=== PATIENT | female | born 1950 | race Caucasian/White ===

== ENCOUNTER 2018-03-30 05:38 | Observation (INO) ==
[2018-03-24 13:48] LABS: Basophils % 0.5 % (0.0-0.8); Eosinophils # 0.3 10*3/uL (0.0-0.87); Eosinophils % 3.2 % (0.00-10.9); Hematocrit 36.6 VOL% (35.7-47.0); Hemoglobin 12.2 GM/DL (12.0-16.0); Immature Granulocytes % 0.5 %; Immature Granulocytes Absolute 0.04 #; Lymphocytes # 2.8 10*3/uL (1.4-4.0); Lymphocytes % 33.4 % (21.3-54.2); Mean Corpuscular HGB Conc 33.3 GM/DL (32-36); Mean Corpuscular Hemoglobin 29 PG (27-34); Mean Platelet Volume 11.4 FL (9.6-12.0); Monocytes # 0.6 10*3/uL (0.11-0.8); Neutrophils # 4.6 10*3/uL (1.4-7.4); Neutrophils % 55.4 % (38.7-73.9); Platelet Count 276 T/CUMM (130-400); Red Blood Count 4.16 MC/CUMM (3.8-5.5); Red Cell Distribution Width 13.5 % (9.3-17.3); White Blood Count 8.4 T/CUMM (4-12)
[2018-03-24 13:49] LABS: Apearance,Urine CLEAR (Clear); Bilirubin,Urine Negative (Negative); Blood, Urine Negative (Negative); Glucose,Urine (UA) 150 mg/dL (Negative); Ketones,Urine Negative (Negative); Mucus,Urine Occasional /LPF (Occasional); Nitrite,Urine Negative (Negative); Protein,Urine Negative; RBC,Urine <1 /HPF (0-4); Squamous Epithelial Cell,Urine Occasional /HPF (0-10); Urine Color Straw (Yellow); Urine Specific Gravity 1.008 (1.001-1.035); Urine Urobilinogen < 2.0 EU/DL (0.2-1.0); WBC,Urine 1 /HPF (0-6)
[2018-03-24 14:13] LABS: Potassium 3.5 MMOL/L (3.5-5.1)
[2018-03-30] MEDS ORDERED: ALBUTEROL/IPRATROPIUM 3 ML NEB RESP TX ONE (07:47)
[2018-03-30] MEDS ORDERED: DIAZEPAM 5 MG TABLET PO ONE (07:47)
[2018-03-30] MEDS ORDERED: FAMOTIDINE 20 MG TABLET PO ONE (07:47)
[2018-03-30] MEDS ORDERED: ceFAZolin 2,000 MG in PREMIX 1 EACH IV ONE (09:00)
[2018-03-30] MEDS ORDERED: DIAZEPAM 5 MG TABLET ONE (09:30)
[2018-03-30] MEDS ORDERED: FAMOTIDINE 20 MG TABLET ONE (09:30)
[2018-03-30] MEDS: LACTATED RINGERS 1,000 ML IV SCH ×2 (10:13→13:26)
[2018-03-30] MEDS ORDERED: ROPIVACAINE 0.5% 30 ML VIAL ONE (10:27)
[2018-03-30] MEDS ORDERED: LIDOCAINE 1%/EPI INJ 20 ML VIAL ONE (10:38)
[2018-03-30] MEDS ORDERED: RACEPINEPHRINE 0.5 ML NEB RESP TX STA (13:30)
[2018-03-30] MEDS ORDERED: RACEPINEPHRINE 0.5 ML NEB RESP TX ONE (13:31)
[2018-03-30] MEDS ORDERED: ALBUTEROL 1.25 MG/3 ML NEB RESP TX STA ×2 (14:04)
[2018-03-30] MEDS ORDERED: MIDAZOLAM 2 MG/2 ML VIAL ONE (14:07)
[2018-03-30] MEDS ORDERED: fentaNYL 100 MCG/2 ML VIAL ONE (14:07)
[2018-03-30] MEDS ORDERED: DEXAMETHASONE 10 MG/1 ML VIAL ONE ×2 (14:07→14:08)
[2018-03-30] MEDS ORDERED: PROPOFOL 200 MG/20 ML VIAL IV ONE (14:07)
[2018-03-30] MEDS ORDERED: SEVOFLURANE 1 UNIT/15 MINUTE INH ONE (14:07)
[2018-03-30] MEDS ORDERED: NEOSTIGMINE 10 MG/10 ML VIAL ONE (14:08)
[2018-03-30] MEDS ORDERED: ONDANSETRON 4 MG/2 ML VIAL ONE (14:08)
[2018-03-30] MEDS ORDERED: ROCURONIUM 100 MG/10 ML VIAL IV ONE (14:08)
[2018-03-30] MEDS ORDERED: GLYCOPYRROLATE 0.4 MG/2 ML VIAL ONE (14:08)
[2018-03-30] MEDS ORDERED: FUROSEMIDE 40 MG/4 ML VIAL IV ONE ×2 (14:27→18:00)
[2018-03-30] MEDS ORDERED: FUROSEMIDE 40 MG/4 ML VIAL ONE (14:30)
[2018-03-30] MEDS ORDERED: HYDROmorphone 2 MG/1 ML VIAL IV PRN ×2 (14:41→14:44)
[2018-03-30] MEDS ORDERED: IBUPROFEN 600 MG TABLET PO PRN (14:42)
[2018-03-30] MEDS ORDERED: SUGAMMADEX 200 MG/2 ML VIAL IV ONE (15:23)
[2018-03-30 17:19] LABS: Apearance,Urine CLEAR (Clear); Bacteria,Urine Occasional /HPF (Few); Bilirubin,Urine Negative (Negative); Blood, Urine Negative (Negative); Glucose,Urine (UA) 50 mg/dL (Negative); Ketones,Urine Negative (Negative); Nitrite,Urine Negative (Negative); Protein,Urine Negative; RBC,Urine <1 /HPF (0-4); Urine Color Colorless (Yellow); Urine Specific Gravity 1.005 (1.001-1.035); Urine Urobilinogen < 2.0 EU/DL (0.2-1.0)
[2018-03-30] MEDS ORDERED: ALBUTEROL 2.5 MG/3 ML NEB RESP TX PRN (17:20)
[2018-03-30 18:57] LABS: Osmolality,Calculated 278.8 MOS/KG (273-304); Potassium 3.4 MMOL/L (3.5-5.1)
[2018-03-30] MEDS: ALBUTEROL 1.25 MG/3 ML NEB RESP TX SCH (19:13)
[2018-03-30] MEDS: ASPIRIN EC 81 MG TABLET PO SCH (20:56)
[2018-03-30] MEDS ORDERED: PHENOL 1.4% THROAT SPRAY 177 ML BOTTLE PO PRN (21:54)
[2018-03-30] MEDS: ONDANSETRON 4 MG/2 ML VIAL IV PRN (21:59)
[2018-03-31] MEDS: ALBUTEROL 1.25 MG/3 ML NEB RESP TX SCH ×4 (01:05→20:12)
[2018-03-31 05:36] LABS: Basophils % 0.2 % (0.0-0.8); Hematocrit 37.1 VOL% (35.7-47.0); Hemoglobin 12.4 GM/DL (12.0-16.0); Immature Granulocytes % 0.6 %; Lymphocytes # 1.7 10*3/uL (1.4-4.0); Lymphocytes % 10.2 % (21.3-54.2); Mean Corpuscular HGB Conc 33.4 GM/DL (32-36); Mean Corpuscular Hemoglobin 30 PG (27-34); Monocytes # 1.1 10*3/uL (0.11-0.8); Monocytes % 6.5 % (1.7-12.7); Neutrophils # 13.6 10*3/uL (1.4-7.4); Neutrophils % 82.5 % (38.7-73.9); Platelet Count 284 T/CUMM (130-400); Red Blood Count 4.17 MC/CUMM (3.8-5.5); Red Cell Distribution Width 13.8 % (9.3-17.3); White Blood Count 16.4 T/CUMM (4-12)
[2018-03-31 05:54] LABS: Calcium 8.3 MG/DL (8.5-10.1); Potassium 3.5 MMOL/L (3.5-5.1)
[2018-03-31] MEDS ORDERED: FUROSEMIDE 40 MG/4 ML VIAL IV ONE (08:02)
[2018-03-31] MEDS ORDERED: GLATIRAMER ACETATE 40 MG SQ SCH (08:15)
[2018-03-31] MEDS: metFORMIN 500 MG TABLET PO SCH ×2 (08:22→20:25)
[2018-03-31] MEDS: GABAPENTIN 100 MG CAPSULE PO SCH ×2 (08:22→20:24)
[2018-03-31] MEDS: MONTELUKAST 10 MG TABLET PO SCH (08:22)
[2018-03-31] MEDS: LOSARTAN/HCTZ 50-12.5 MG TABLET PO SCH (08:22)
[2018-03-31] MEDS: MELOXICAM 7.5 MG TABLET PO SCH (08:22)
[2018-03-31] MEDS: CITALOPRAM 20 MG TABLET PO SCH (08:22)
[2018-03-31] MEDS: amLODIPine 5 MG TABLET PO SCH (08:22)
[2018-03-31] MEDS: sitaGLIPtin 100 MG TABLET PO SCH (08:22)
[2018-03-31] MEDS: ONDANSETRON 4 MG/2 ML VIAL IV PRN ×3 (09:37→19:25)
[2018-03-31] MEDS ORDERED: INSULIN GLARGINE 100 UNIT/ML SUBCUT SCH (19:00)
[2018-03-31] MEDS: ASPIRIN EC 81 MG TABLET PO SCH (20:25)
[2018-03-31] MEDS ORDERED: ZALEPLON 5 MG CAPSULE PO SCH (21:00)
[2018-04-01] MEDS: ALBUTEROL 1.25 MG/3 ML NEB RESP TX SCH ×2 (00:25→07:55)
[2018-04-01] MEDS: ONDANSETRON 4 MG/2 ML VIAL IV PRN (06:55)
[2018-04-01] MEDS: MONTELUKAST 10 MG TABLET PO SCH (09:15)
[2018-04-01] MEDS: amLODIPine 5 MG TABLET PO SCH (09:20)
[2018-04-01] MEDS: GABAPENTIN 100 MG CAPSULE PO SCH (09:20)
[2018-04-01] MEDS: MELOXICAM 7.5 MG TABLET PO SCH (09:20)
[2018-04-01] MEDS: sitaGLIPtin 100 MG TABLET PO SCH (09:21)
[2018-04-01] MEDS: CITALOPRAM 20 MG TABLET PO SCH (09:21)
[2018-04-01] MEDS: LOSARTAN/HCTZ 50-12.5 MG TABLET PO SCH (09:21)
[2018-04-01] MEDS: metFORMIN 500 MG TABLET PO SCH (09:21)
[2018-04-01] MEDS ORDERED: FUROSEMIDE 40 MG/4 ML VIAL IV ONE (10:12)
[2018-04-01] MEDS ORDERED: FUROSEMIDE 40 MG TABLET PO ONE (11:18)
[2018-04-01 11:27] VITALS: BP 131/63
== END 2018-04-01 13:36 | disposition home or self-care (01) ==
LOC: N.OR 05:38 → N.CC 05:38 → N.SDSINP 05:39 → N.CC 16:09 → N.3E 03-31 11:08
PROVIDERS: ADMIT Orthopaedic Surgery; ATTEND Orthopaedic Surgery

== ENCOUNTER 2021-03-17 13:23 | Inpatient (IN) ==
[2021-03-17] MEDS ORDERED: NITROGLYCERIN SL 0.4 MG TABLET SL PRN (13:50)
[2021-03-17] MEDS ORDERED: ASPIRIN 325 MG TABLET PO STA (13:50)
[2021-03-17 14:10] LABS: Basophils % 0.3 % (0.0-0.8); Eosinophils # 0.1 10*3/uL (0.0-0.87); Eosinophils % 0.5 % (0.00-10.9); Hematocrit 41.8 VOL% (35.7-47.0); Hemoglobin 14.4 GM/DL (12.0-16.0); Immature Granulocytes % 0.3 %; Immature Granulocytes Absolute 0.03 #; Lymphocytes # 2.3 10*3/uL (1.4-4.0); Lymphocytes % 23.1 % (21.3-54.2); Mean Corpuscular HGB Conc 34.4 GM/DL (32-36); Mean Corpuscular Volume 85.5 FL (87-102); Mean Platelet Volume 10.9 FL (9.6-12.0); Monocytes % 5.6 % (1.7-12.7); Neutrophils % 70.2 % (38.7-73.9); Platelet Count 418 T/CUMM (130-400); Red Blood Count 4.89 MC/CUMM (3.8-5.5); White Blood Count 9.9 T/CUMM (4-12)
[2021-03-17 14:27] LABS: Calcium 9.6 MG/DL (8.5-10.1); Osmolality,Calculated 268.4 MOS/KG (273-304); Potassium 3.2 MMOL/L (3.5-5.1)
[2021-03-17] MEDS ORDERED: hydrALAZINE 20 MG/1 ML VIAL IV STA (15:21)
[2021-03-17] MEDS ORDERED: DEXTROSE 50% 25 GM/50 ML VIAL IV PRN (16:00)
[2021-03-17] MEDS ORDERED: MORPHINE 2 MG/1 ML SYRINGE IV PRN (16:00)
[2021-03-17] MEDS ORDERED: ONDANSETRON 4 MG/2 ML VIAL IV PRN (16:00)
[2021-03-17] MEDS ORDERED: hydrALAZINE 20 MG/1 ML VIAL IV PRN (16:00)
[2021-03-17] MEDS ORDERED: GLUCAGON 1 MG VIAL IM PRN (16:00)
[2021-03-17] MEDS ORDERED: MAGNESIUM SULF RIDER 2 GM/50 ML PREMIX IV ONE (16:03)
[2021-03-17] MEDS ORDERED: POTASSIUM CHLORIDE 20 MEQ TABLET PO ONE (16:03)
[2021-03-17] MEDS ORDERED: ALBUTEROL/IPRATROPIUM 3 ML NEB RESP TX PRN (16:15)
[2021-03-17] MEDS: ENOXAPARIN 40 MG/0.4 ML SYRINGE SUBCUT SCH (17:12)
[2021-03-17] MEDS: INSULIN LISPRO 100 UNIT/ML SUBCUT SCH ×2 (17:24→20:40)
[2021-03-17] MEDS ORDERED: MONTELUKAST 10 MG TABLET PO SCH (19:00)
[2021-03-17] MEDS: MONTELUKAST 10 MG TABLET PO SCH (20:40)
[2021-03-17] MEDS: ZALEPLON 5 MG CAPSULE PO PRN (22:16)
[2021-03-17] MEDS: ACETAMINOPHEN 325 MG TABLET PO PRN (23:52)
[2021-03-18 05:24] LABS: Basophils % 0.4 % (0.0-0.8); Eosinophils # 0.2 10*3/uL (0.0-0.87); Eosinophils % 1.5 % (0.00-10.9); Hematocrit 39.8 VOL% (35.7-47.0); Hemoglobin 13.5 GM/DL (12.0-16.0); Immature Granulocytes % 0.5 %; Immature Granulocytes Absolute 0.05 #; Lymphocytes # 3.4 10*3/uL (1.4-4.0); Lymphocytes % 32.6 % (21.3-54.2); Mean Corpuscular HGB Conc 33.9 GM/DL (32-36); Mean Corpuscular Volume 86.5 FL (87-102); Monocytes % 8.1 % (1.7-12.7); Neutrophils % 56.9 % (38.7-73.9); Platelet Count 378 T/CUMM (130-400); Red Cell Distribution Width 13.2 % (9.3-17.3); White Blood Count 10.3 T/CUMM (4-12)
[2021-03-18] MEDS: LEVOTHYROXINE 175 MCG TABLET PO SCH (05:58)
[2021-03-18 05:59] LABS: Calcium 9.6 MG/DL (8.5-10.1); Osmolality,Calculated 266.4 MOS/KG (273-304); Potassium 3.4 MMOL/L (3.5-5.1); Risk Ratio 3.24; VLDL Cholesterol 34.2 MG/DL
[2021-03-18] MEDS ORDERED: POTASSIUM CHLORIDE 20 MEQ TABLET PO ONE (07:48)
[2021-03-18] MEDS: INSULIN LISPRO 100 UNIT/ML SUBCUT SCH ×4 (08:36→20:45)
[2021-03-18] MEDS ORDERED: ALBUTEROL 2.5 MG/3 ML NEB RESP TX PRN (08:46)
[2021-03-18] MEDS ORDERED: DEXTROSE 50% 25 GM/50 ML VIAL IV PRN (08:48)
[2021-03-18] MEDS: ASPIRIN 325 MG TABLET PO SCH (09:28)
[2021-03-18] MEDS: DICLOFENAC 1% GEL 100 GM TUBE TOP SCH ×4 (09:28→20:46)
[2021-03-18] MEDS: carvediloL 6.25 MG TABLET PO SCH ×2 (09:28→20:45)
[2021-03-18] MEDS: PANTOPRAZOLE 40 MG TABLET PO SCH (09:29)
[2021-03-18] MEDS: EZETIMIBE 10 MG TABLET PO SCH (09:29)
[2021-03-18] MEDS: GABAPENTIN 300 MG CAPSULE PO SCH ×4 (09:29→20:45)
[2021-03-18] MEDS: amLODIPine 10 MG TABLET PO SCH (09:29)
[2021-03-18] MEDS: LOSARTAN/HCTZ 50-12.5 MG TABLET PO SCH (09:29)
[2021-03-18] MEDS: predniSONE 5 MG TABLET PO SCH ×2 (09:29→18:10)
[2021-03-18] MEDS ORDERED: POTASSIUM CHLORIDE RIDER 10 MEQ/100 ML PREMIX IV PRN (14:16)
[2021-03-18] MEDS ORDERED: MAGNESIUM SULF RIDER 2 GM/50 ML PREMIX IV PRN (14:16)
[2021-03-18] MEDS: ENOXAPARIN 40 MG/0.4 ML SYRINGE SUBCUT SCH (16:42)
[2021-03-18] MEDS: MONTELUKAST 10 MG TABLET PO SCH (20:45)
[2021-03-18] MEDS: FENOFIBRATE 145 MG TABLET PO SCH (20:45)
[2021-03-18] MEDS ORDERED: ZALEPLON 5 MG CAPSULE PO SCH (21:00)
[2021-03-18] MEDS: ZALEPLON 5 MG CAPSULE PO PRN (22:43)
[2021-03-19] MEDS ORDERED: SODIUM CHLORIDE 0.45% 1,000 ML IV SCH (05:00)
[2021-03-19] MEDS: LEVOTHYROXINE 175 MCG TABLET PO SCH (05:37)
[2021-03-19 06:23] LABS: Basophils % 0.4 % (0.0-0.8); Eosinophils # 0.2 10*3/uL (0.0-0.87); Eosinophils % 2.3 % (0.00-10.9); Hematocrit 38.5 VOL% (35.7-47.0); Hemoglobin 12.9 GM/DL (12.0-16.0); Immature Granulocytes % 0.5 %; Immature Granulocytes Absolute 0.04 #; Lymphocytes # 3.1 10*3/uL (1.4-4.0); Lymphocytes % 36.3 % (21.3-54.2); Mean Corpuscular HGB Conc 33.5 GM/DL (32-36); Mean Corpuscular Volume 87.1 FL (87-102); Mean Platelet Volume 11.3 FL (9.6-12.0); Monocytes % 7.5 % (1.7-12.7); Platelet Count 346 T/CUMM (130-400); Red Blood Count 4.42 MC/CUMM (3.8-5.5); Red Cell Distribution Width 13.2 % (9.3-17.3); White Blood Count 8.6 T/CUMM (4-12)
[2021-03-19 06:36] LABS: Calcium 9.3 MG/DL (8.5-10.1); Osmolality,Calculated 266.7 MOS/KG (273-304); Potassium 3.5 MMOL/L (3.5-5.1)
[2021-03-19] MEDS ORDERED: LIDOCAINE 1% 20 ML VIAL ONE (06:42)
[2021-03-19] MEDS ORDERED: HEPARIN/NACL 0.9% 2 UNITS/ML 2,000 UNIT/1,000 ML BAG IV ONE (06:42)
[2021-03-19] MEDS ORDERED: HYDROmorphone 2 MG/1 ML VIAL ONE (06:55)
[2021-03-19] MEDS ORDERED: MIDAZOLAM 2 MG/2 ML VIAL ONE (06:56)
[2021-03-19] MEDS ORDERED: diphenhydrAMINE CAP 50 MG CAPSULE PO ONE (07:00)
[2021-03-19] MEDS ORDERED: ONDANSETRON 4 MG/2 ML VIAL ONE (07:00)
[2021-03-19] MEDS ORDERED: DIAZEPAM 5 MG TABLET PO ONE (07:00)
[2021-03-19] MEDS: LOSARTAN/HCTZ 50-12.5 MG TABLET PO SCH (08:26)
[2021-03-19] MEDS: EZETIMIBE 10 MG TABLET PO SCH (08:26)
[2021-03-19] MEDS: carvediloL 6.25 MG TABLET PO SCH (08:26)
[2021-03-19] MEDS: PANTOPRAZOLE 40 MG TABLET PO SCH (08:26)
[2021-03-19] MEDS: GABAPENTIN 300 MG CAPSULE PO SCH (08:26)
[2021-03-19] MEDS: ASPIRIN 325 MG TABLET PO SCH (08:26)
[2021-03-19] MEDS: amLODIPine 10 MG TABLET PO SCH (08:26)
[2021-03-19] MEDS: INSULIN LISPRO 100 UNIT/ML SUBCUT SCH ×4 (08:27→20:27)
[2021-03-19] MEDS: DICLOFENAC 1% GEL 100 GM TUBE TOP SCH ×4 (08:28→20:27)
[2021-03-19] MEDS ORDERED: SODIUM CHLORIDE 0.9% 1,000 ML IV ONE (11:36)
[2021-03-19 11:42] LABS: Basophils % 0.3 % (0.0-0.8); Eosinophils # 0.2 10*3/uL (0.0-0.87); Hematocrit 34.1 VOL% (35.7-47.0); Hemoglobin 11.6 GM/DL (12.0-16.0); Immature Granulocytes % 0.6 %; Immature Granulocytes Absolute 0.05 #; Lymphocytes # 3.3 10*3/uL (1.4-4.0); Lymphocytes % 37.5 % (21.3-54.2); Mean Corpuscular Volume 87.2 FL (87-102); Mean Platelet Volume 11.1 FL (9.6-12.0); Monocytes % 7.6 % (1.7-12.7); Platelet Count 342 T/CUMM (130-400); Red Blood Count 3.91 MC/CUMM (3.8-5.5); Red Cell Distribution Width 13.3 % (9.3-17.3); White Blood Count 8.9 T/CUMM (4-12)
[2021-03-19 12:03] LABS: Calcium 8.9 MG/DL (8.5-10.1); Osmolality,Calculated 264.8 MOS/KG (273-304); Potassium 3.8 MMOL/L (3.5-5.1)
[2021-03-19] MEDS: SODIUM CHLORIDE 0.9% 1,000 ML IV SCH (13:08)
[2021-03-19 14:15] LABS: Basophils % 0.2 % (0.0-0.8); Eosinophils # 0.1 10*3/uL (0.0-0.87); Eosinophils % 1.3 % (0.00-10.9); Hematocrit 38.6 VOL% (35.7-47.0); Hemoglobin 13.1 GM/DL (12.0-16.0); Immature Granulocytes % 0.5 %; Immature Granulocytes Absolute 0.05 #; Lymphocytes % 18.7 % (21.3-54.2); Mean Corpuscular HGB Conc 33.9 GM/DL (32-36); Mean Corpuscular Volume 87.1 FL (87-102); Monocytes % 6.7 % (1.7-12.7); Neutrophils % 72.6 % (38.7-73.9); Platelet Count 347 T/CUMM (130-400); Red Blood Count 4.43 MC/CUMM (3.8-5.5); Red Cell Distribution Width 13.2 % (9.3-17.3); White Blood Count 10.8 T/CUMM (4-12)
[2021-03-19 14:32] VITALS: BP 143/69
[2021-03-19] MEDS: FENOFIBRATE 145 MG TABLET PO SCH (20:27)
[2021-03-19] MEDS: MONTELUKAST 10 MG TABLET PO SCH (20:27)
[2021-03-19] MEDS ORDERED: ZALEPLON 5 MG CAPSULE PO PRN (21:32)
[2021-03-20] MEDS: SODIUM CHLORIDE 0.9% 1,000 ML IV SCH ×2 (00:32→09:25)
[2021-03-20 05:32] LABS: Basophils % 0.3 % (0.0-0.8); Eosinophils # 0.1 10*3/uL (0.0-0.87); Eosinophils % 1.5 % (0.00-10.9); Hematocrit 35.3 VOL% (35.7-47.0); Immature Granulocytes % 0.5 %; Immature Granulocytes Absolute 0.04 #; Lymphocytes % 22.7 % (21.3-54.2); Mean Corpuscular Volume 87.4 FL (87-102); Mean Platelet Volume 11.2 FL (9.6-12.0); Monocytes % 7.2 % (1.7-12.7); Neutrophils % 67.8 % (38.7-73.9); Platelet Count 337 T/CUMM (130-400); Red Blood Count 4.04 MC/CUMM (3.8-5.5); Red Cell Distribution Width 13.1 % (9.3-17.3); White Blood Count 8.7 T/CUMM (4-12)
[2021-03-20] MEDS: LEVOTHYROXINE 175 MCG TABLET PO SCH (05:53)
[2021-03-20] MEDS: ACETAMINOPHEN 325 MG TABLET PO PRN (05:53)
[2021-03-20 06:01] LABS: Calcium 8.3 MG/DL (8.5-10.1); Osmolality,Calculated 269.4 MOS/KG (273-304); Potassium 3.3 MMOL/L (3.5-5.1)
[2021-03-20] MEDS ORDERED: POTASSIUM CHLORIDE 20 MEQ TABLET PO ONE (07:36)
[2021-03-20] MEDS ORDERED: MAGNESIUM SULF RIDER 2 GM/50 ML PREMIX IV ONE (07:36)
[2021-03-20] MEDS ORDERED: amLODIPine 5 MG TABLET PO ONE ×2 (07:36→10:54)
[2021-03-20] MEDS: INSULIN LISPRO 100 UNIT/ML SUBCUT SCH ×2 (08:27→12:54)
[2021-03-20] MEDS: ASPIRIN 325 MG TABLET PO SCH (08:28)
[2021-03-20] MEDS: EZETIMIBE 10 MG TABLET PO SCH (08:28)
[2021-03-20] MEDS: PANTOPRAZOLE 40 MG TABLET PO SCH (08:28)
[2021-03-20] MEDS: GABAPENTIN 300 MG CAPSULE PO SCH ×2 (08:28→12:54)
[2021-03-20] MEDS: DICLOFENAC 1% GEL 100 GM TUBE TOP SCH ×2 (09:25→12:54)
[2021-03-21] MEDS ORDERED: ASPIRIN EC 81 MG TABLET PO SCH (09:00)
[2021-03-21] MEDS ORDERED: amLODIPine 5 MG TABLET PO SCH (09:00)
== END 2021-03-20 13:25 | disposition home or self-care (01) | DRG 287 ==
LOC: N.ED 13:23 → N.EDINP 13:23 → SUATTDRO 16:00 → N.TELEN 17:17 → N.CC 03-19 11:57 → SUATTDRO 03-19 13:31
PROVIDERS: ADMIT Internal Medicine; ATTEND Family Medicine
PROC: CLCCHCL (ICD-10-PCS; 2021-03-19 07:15)

== ENCOUNTER 2021-06-19 11:04 | Observation (INO) ==
[2021-06-19] MEDS ORDERED: hydrALAZINE 20 MG/1 ML VIAL IV STA ×2 (11:34→13:53)
[2021-06-19 12:03] LABS: Basophils % 0.2 % (0.0-0.8); Eosinophils % 0.2 % (0.00-10.9); Hematocrit 43.5 VOL% (35.7-47.0); Hemoglobin 14.5 GM/DL (12.0-16.0); Immature Granulocytes % 0.6 %; Immature Granulocytes Absolute 0.06 #; Lymphocytes # 1.7 10*3/uL (1.4-4.0); Lymphocytes % 15.9 % (21.3-54.2); Mean Corpuscular HGB Conc 33.3 GM/DL (32-36); Mean Corpuscular Volume 84.3 FL (87-102); Monocytes % 4.4 % (1.7-12.7); Neutrophils % 78.7 % (38.7-73.9); Platelet Count 356 T/CUMM (130-400); Red Blood Count 5.16 MC/CUMM (3.8-5.5); Red Cell Distribution Width 13.2 % (9.3-17.3); White Blood Count 10.9 T/CUMM (4-12)
[2021-06-19 12:14] LABS: PT Patient Result 11.2 SECS (10.5-12.0); Partial Thromboplastin Time 26.3 SECS (23.8-32.1)
[2021-06-19 12:21] LABS: Albumin 3.8 G/DL (3.4-5.0); Bilirubin,Total 0.4 MG/DL (0.20-1.00); Calcium 9.8 MG/DL (8.5-10.1); Osmolality,Calculated 276.7 MOS/KG (273-304); Potassium 3.3 MMOL/L (3.5-5.1); Total Protein 8.2 G/DL (6.4-8.2)
[2021-06-19] MEDS ORDERED: GLUCAGON 1 MG VIAL IM PRN ×2 (15:57)
[2021-06-19] MEDS ORDERED: CALCIUM CARBONATE CHEW 500 MG TABLET PO PRN (15:57)
[2021-06-19] MEDS ORDERED: ACETAMINOPHEN 325 MG TABLET PO PRN (15:57)
[2021-06-19] MEDS ORDERED: ONDANSETRON 4 MG/2 ML VIAL IV PRN (15:57)
[2021-06-19] MEDS ORDERED: DOCUSATE SODIUM 100 MG CAPSULE PO PRN (15:57)
[2021-06-19] MEDS ORDERED: DEXTROSE 50% 25 GM/50 ML VIAL IV PRN (15:57)
[2021-06-19] MEDS ORDERED: ENOXAPARIN 40 MG/0.4 ML SYRINGE SUBCUT SCH (16:00)
[2021-06-19] MEDS ORDERED: DEXTROSE 50% 25 GM/50 ML SYRINGE IV PRN (16:03)
[2021-06-19] MEDS: INSULIN REGULAR 100 UNIT/ML SUBCUT SCH ×2 (17:16→20:52)
[2021-06-19] MEDS: SODIUM CHLORIDE 0.9% 1,000 ML IV SCH (17:52)
[2021-06-19] MEDS: GABAPENTIN 300 MG CAPSULE PO SCH (20:28)
[2021-06-20] MEDS: SODIUM CHLORIDE 0.9% 1,000 ML IV SCH (00:32)
[2021-06-20] MEDS: INSULIN REGULAR 100 UNIT/ML SUBCUT SCH ×2 (08:58→12:12)
[2021-06-20] MEDS: GABAPENTIN 300 MG CAPSULE PO SCH (11:40)
[2021-06-20 12:09] VITALS: BP 130/56
[2021-06-24 12:56] LABS: Metanephrine, Free < 0.20 nmol/L (<0.50); Normetanephrine, Free 0.67 nmol/L (<0.90)
== END 2021-06-20 12:45 | disposition home or self-care (01) ==
LOC: N.EDINP 11:04 → N.ED 11:04 → N.TELES 17:00
PROVIDERS: ADMIT Internal Medicine Geriatric Medicine; ATTEND Internal Medicine Geriatric Medicine

== ENCOUNTER 2022-02-17 19:15 | Inpatient (IN) ==
[2022-02-17] MEDS ORDERED: methylPREDNISolone SOD SUC 125 MG/2 ML VIAL IV STA (19:49)
[2022-02-17] MEDS ORDERED: ALBUTEROL/IPRATROPIUM 3 ML NEB RESP TX STA (19:49)
[2022-02-17 20:14] LABS: Basophils % 0.3 % (0.0-0.8); Eosinophils # 0.1 10*3/uL (0.0-0.87); Eosinophils % 1.3 % (0.00-10.9); Hematocrit 38.4 VOL% (35.7-47.0); Hemoglobin 13.2 GM/DL (12.0-16.0); Immature Granulocytes Absolute 0.09 #; Lymphocytes # 1.7 10*3/uL (1.4-4.0); Lymphocytes % 18.5 % (21.3-54.2); Mean Corpuscular HGB Conc 34.4 GM/DL (32-36); Mean Corpuscular Volume 82.1 FL (87-102); Mean Platelet Volume 10.3 FL (9.6-12.0); Monocytes # 0.7 10*3/uL (0.11-0.8); Monocytes % 7.7 % (1.7-12.7); Neutrophils % 71.2 % (38.7-73.9); Platelet Count 311 T/CUMM (130-400); Red Blood Count 4.68 MC/CUMM (3.8-5.5); Red Cell Distribution Width 13.5 % (9.3-17.3); White Blood Count 9.2 T/CUMM (4-12)
[2022-02-17 20:15] LABS: Albumin 3.5 G/DL (3.4-5.0); Bilirubin,Total 0.4 MG/DL (0.20-1.00); Calcium 9.2 MG/DL (8.5-10.1); Osmolality,Calculated 265.5 MOS/KG (273-304); Potassium 3.1 MMOL/L (3.5-5.1); Total Protein 7.7 G/DL (6.4-8.2)
[2022-02-17] MEDS ORDERED: POTASSIUM CHLORIDE 20 MEQ TABLET PO STA (20:16)
[2022-02-17] MEDS ORDERED: LEVOFLOXACIN INJ 500 MG/100 ML PREMIX IV ONE (20:42)
[2022-02-17] MEDS ORDERED: ALBUTEROL 2.5 MG/3 ML NEB RESP TX PRN (21:56)
[2022-02-17] MEDS ORDERED: DEXTROSE 10% 250 ML BAG IV PRN (22:01)
[2022-02-17] MEDS ORDERED: GLUCAGON 1 MG VIAL IM PRN (22:01)
[2022-02-17] MEDS ORDERED: ONDANSETRON 4 MG/2 ML VIAL IV PRN (22:06)
[2022-02-17] MEDS ORDERED: POTASSIUM CHLORIDE 20 MEQ TABLET PO PRN (22:35)
[2022-02-17] MEDS ORDERED: guaiFENesin 200 MG/10 ML UDCUP PO PRN (22:48)
[2022-02-17] MEDS ORDERED: SODIUM CHLORIDE 0.9% 1,000 ML IV SCH (23:30)
[2022-02-18] MEDS: ALBUTEROL/IPRATROPIUM 3 ML NEB RESP TX SCH ×5 (00:53→23:02)
[2022-02-18 05:22] LABS: Basophils % 0.1 % (0.0-0.8); Hematocrit 36.1 VOL% (35.7-47.0); Hemoglobin 12.3 GM/DL (12.0-16.0); Immature Granulocytes % 0.7 %; Immature Granulocytes Absolute 0.05 #; Lymphocytes # 0.6 10*3/uL (1.4-4.0); Mean Corpuscular HGB Conc 34.1 GM/DL (32-36); Mean Platelet Volume 10.6 FL (9.6-12.0); Monocytes # 0.1 10*3/uL (0.11-0.8); Monocytes % 0.9 % (1.7-12.7); Neutrophils % 90.3 % (38.7-73.9); Platelet Count 316 T/CUMM (130-400); Red Blood Count 4.35 MC/CUMM (3.8-5.5); Red Cell Distribution Width 13.3 % (9.3-17.3)
[2022-02-18 05:35] LABS: Calcium 9.3 MG/DL (8.5-10.1); Osmolality,Calculated 274.2 MOS/KG (273-304); Potassium 3.9 MMOL/L (3.5-5.1)
[2022-02-18] MEDS ORDERED: ENOXAPARIN 40 MG/0.4 ML SYRINGE SUBCUT SCH (09:00)
[2022-02-18] MEDS: methylPREDNISolone SOD SUC 40 MG/1 ML VIAL IV SCH ×2 (10:03→20:38)
[2022-02-18] MEDS: ACETAMINOPHEN 325 MG TABLET PO PRN ×2 (10:04→17:42)
[2022-02-18] MEDS: INSULIN LISPRO 100 UNIT/ML SUBCUT SCH ×4 (10:05→20:38)
[2022-02-18] MEDS ORDERED: [UNRECOGNIZED DRUG - OTHER] PO PRN (11:24)
[2022-02-18] MEDS ORDERED: SIMETHICONE PO PRN (11:24)
[2022-02-18] MEDS ORDERED: ALUMINUM HYDROXIDE PO PRN (11:24)
[2022-02-18] MEDS ORDERED: MAGNESIUM HYDROXIDE PO PRN (11:24)
[2022-02-18] MEDS: PANTOPRAZOLE 40 MG TABLET PO SCH (13:31)
[2022-02-18] MEDS: amLODIPine 10 MG TABLET PO SCH (13:31)
[2022-02-18] MEDS: CETIRIZINE 10 MG TABLET PO SCH (13:31)
[2022-02-18] MEDS: NYSTATIN 500,000 UNIT/5 ML UDCUP SWISH/SWAL SCH ×3 (13:31→20:37)
[2022-02-18] MEDS: GABAPENTIN 300 MG CAPSULE PO SCH ×3 (13:31→20:38)
[2022-02-18] MEDS: DICLOFENAC 1% GEL 100 GM TUBE TOP SCH ×3 (13:32→20:39)
[2022-02-18] MEDS: RIVAROXABAN 20 MG TABLET PO SCH (17:42)
[2022-02-18] MEDS: BENZONATATE 100 MG CAPSULE PO SCH ×2 (17:42→20:37)
[2022-02-18] MEDS: INSULIN GLARGINE 100 UNIT/ML SUBCUT SCH (17:44)
[2022-02-18] MEDS: NEBIVOLOL 10 MG TABLET PO SCH (17:48)
[2022-02-18] MEDS: ARFORMOTEROL 15 MCG/2 ML NEB RESP TX SCH (19:23)
[2022-02-18] MEDS: PSYLLIUM POWDER 3.7 GM/PACK PO SCH (20:37)
[2022-02-18] MEDS: ASPIRIN EC 81 MG TABLET PO SCH (20:37)
[2022-02-18] MEDS: guaiFENesin/DM ER 600-30 MG TABLET PO SCH (20:37)
[2022-02-18] MEDS: ZALEPLON 5 MG CAPSULE PO SCH (20:37)
[2022-02-18] MEDS: MONTELUKAST 10 MG TABLET PO SCH (20:37)
[2022-02-19] MEDS: ALBUTEROL/IPRATROPIUM 3 ML NEB RESP TX SCH ×4 (03:20→15:25)
[2022-02-19] MEDS: ACETAMINOPHEN 325 MG TABLET PO PRN (03:38)
[2022-02-19 06:02] LABS: Basophils % 0.1 % (0.0-0.8); Hematocrit 34.3 VOL% (35.7-47.0); Hemoglobin 11.5 GM/DL (12.0-16.0); Immature Granulocytes % 1.3 %; Immature Granulocytes Absolute 0.22 #; Lymphocytes # 1.1 10*3/uL (1.4-4.0); Lymphocytes % 6.5 % (21.3-54.2); Mean Corpuscular HGB Conc 33.5 GM/DL (32-36); Mean Corpuscular Volume 84.1 FL (87-102); Mean Platelet Volume 10.4 FL (9.6-12.0); Monocytes # 0.5 10*3/uL (0.11-0.8); Monocytes % 3.1 % (1.7-12.7); Platelet Count 337 T/CUMM (130-400); Red Blood Count 4.08 MC/CUMM (3.8-5.5); Red Cell Distribution Width 13.9 % (9.3-17.3); White Blood Count 17.5 T/CUMM (4-12)
[2022-02-19] MEDS: LEVOTHYROXINE 175 MCG TABLET PO SCH (06:11)
[2022-02-19 06:18] LABS: Calcium 9.4 MG/DL (8.5-10.1); Osmolality,Calculated 264.9 MOS/KG (273-304); Potassium 3.7 MMOL/L (3.5-5.1)
[2022-02-19] MEDS: ARFORMOTEROL 15 MCG/2 ML NEB RESP TX SCH (06:59)
[2022-02-19] MEDS ORDERED: LOSARTAN/HCTZ 50-12.5 MG TABLET PO SCH (09:00)
[2022-02-19] MEDS: INSULIN LISPRO 100 UNIT/ML SUBCUT SCH ×4 (09:43→22:01)
[2022-02-19] MEDS: CHOLECALCIFEROL 1,000 UNIT TABLET PO SCH (09:45)
[2022-02-19] MEDS: CETIRIZINE 10 MG TABLET PO SCH (09:45)
[2022-02-19] MEDS: guaiFENesin/DM ER 600-30 MG TABLET PO SCH ×2 (09:46→21:57)
[2022-02-19] MEDS: methylPREDNISolone SOD SUC 40 MG/1 ML VIAL IV SCH (09:47)
[2022-02-19] MEDS: GABAPENTIN 300 MG CAPSULE PO SCH ×4 (09:47→21:57)
[2022-02-19] MEDS: MAGNESIUM CHLORIDE 64 MG TABLET PO SCH (09:48)
[2022-02-19] MEDS: BENZONATATE 100 MG CAPSULE PO SCH ×3 (09:48→21:57)
[2022-02-19] MEDS: CYANOCOBALAMIN 500 MCG TABLET PO SCH (09:48)
[2022-02-19] MEDS: PSYLLIUM POWDER 3.7 GM/PACK PO SCH ×2 (09:48→21:57)
[2022-02-19] MEDS: NYSTATIN 500,000 UNIT/5 ML UDCUP SWISH/SWAL SCH ×4 (09:49→21:57)
[2022-02-19] MEDS: DICLOFENAC 1% GEL 100 GM TUBE TOP SCH ×4 (09:54→22:00)
[2022-02-19] MEDS: MULTIVITAMIN (CENTRUM) TABLET PO SCH (09:54)
[2022-02-19] MEDS: cefTRIAXone 1,000 MG in SODIUM CHLORIDE 0.9% 100 ML IV SCH (11:34)
[2022-02-19] MEDS: POTASSIUM CHLORIDE 10 MEQ TABLET PO SCH (12:08)
[2022-02-19] MEDS: amLODIPine 10 MG TABLET PO SCH (12:09)
[2022-02-19] MEDS: PANTOPRAZOLE 40 MG TABLET PO SCH (12:11)
[2022-02-19] MEDS: AZITHROMYCIN INJ 500 MG in SODIUM CHLORIDE 0.9% 250 ML IV SCH (12:27)
[2022-02-19] MEDS ORDERED: REMDESIVIR 200 MG in SODIUM CHLORIDE 0.9% 210 ML IV ONE (17:00)
[2022-02-19] MEDS: INSULIN GLARGINE 100 UNIT/ML SUBCUT SCH (17:14)
[2022-02-19] MEDS: RIVAROXABAN 20 MG TABLET PO SCH (17:16)
[2022-02-19] MEDS: NEBIVOLOL 10 MG TABLET PO SCH (17:16)
[2022-02-19] MEDS: ASPIRIN EC 81 MG TABLET PO SCH (21:57)
[2022-02-19] MEDS: ZALEPLON 5 MG CAPSULE PO SCH (21:57)
[2022-02-19] MEDS: MONTELUKAST 10 MG TABLET PO SCH (22:01)
[2022-02-19] MEDS: BUDESONIDE/FORMOTEROL 160-4.5 INHALER 6 GM INH SCH (22:16)
[2022-02-20] MEDS: LEVOTHYROXINE 175 MCG TABLET PO SCH (05:39)
[2022-02-20] MEDS: INSULIN LISPRO 100 UNIT/ML SUBCUT SCH ×4 (07:46→21:52)
[2022-02-20 08:05] LABS: Basophils % 0.1 % (0.0-0.8); Hematocrit 38.9 VOL% (35.7-47.0); Hemoglobin 12.9 GM/DL (12.0-16.0); Immature Granulocytes % 0.9 %; Immature Granulocytes Absolute 0.19 #; Lymphocytes # 3.4 10*3/uL (1.4-4.0); Lymphocytes % 16.8 % (21.3-54.2); Mean Corpuscular HGB Conc 33.2 GM/DL (32-36); Mean Corpuscular Volume 84.7 FL (87-102); Mean Platelet Volume 10.1 FL (9.6-12.0); Monocytes # 1.2 10*3/uL (0.11-0.8); Monocytes % 6.1 % (1.7-12.7); Neutrophils % 76.1 % (38.7-73.9); Platelet Count 430 T/CUMM (130-400); Red Blood Count 4.59 MC/CUMM (3.8-5.5); Red Cell Distribution Width 14.6 % (9.3-17.3); White Blood Count 20.3 T/CUMM (4-12)
[2022-02-20 08:24] LABS: Eosinophils 1 % (0-10); Hypochromia Slight; Lymphocytes 22 % (20-55); Microcytosis Slight; Platelet Estimate Adequate; Total Cells Counted 100
[2022-02-20 08:29] LABS: Alanine Aminotransferase 29 U/L (13-56); Albumin 3.4 G/DL (3.4-5.0); Alkaline Phosphatase 40 U/L (45-117); Aspartate Amino Transferase 14 U/L (0-37); Bilirubin,Total < 0.39 MG/DL (0.20-1.00); Blood Urea Nitrogen 15 MG/DL (7-18); Calcium 9.7 MG/DL (8.5-10.1); Carbon Dioxide 27 MMOL/L (21-32); Chloride 101 MMOL/L (98-107); Glucose 106 MG/DL (74-106); Osmolality,Calculated 268.2 MOS/KG (273-304); Potassium 4.1 MMOL/L (3.5-5.1); Sodium 134 MMOL/L (136-145); Total Protein 7.5 G/DL (6.4-8.2)
[2022-02-20] MEDS ORDERED: methylPREDNISolone SOD SUC 40 MG/1 ML VIAL IV SCH (09:00)
[2022-02-20] MEDS: REMDESIVIR 100 MG in SODIUM CHLORIDE 0.9% 100 ML IV SCH (10:11)
[2022-02-20] MEDS: guaiFENesin/DM ER 600-30 MG TABLET PO SCH ×2 (10:16→21:51)
[2022-02-20] MEDS: PSYLLIUM POWDER 3.7 GM/PACK PO SCH (10:16)
[2022-02-20] MEDS: NYSTATIN 500,000 UNIT/5 ML UDCUP SWISH/SWAL SCH ×4 (10:16→21:51)
[2022-02-20] MEDS: CHOLECALCIFEROL 1,000 UNIT TABLET PO SCH (10:16)
[2022-02-20] MEDS: CYANOCOBALAMIN 500 MCG TABLET PO SCH (10:16)
[2022-02-20] MEDS: CETIRIZINE 10 MG TABLET PO SCH (10:16)
[2022-02-20] MEDS: MAGNESIUM CHLORIDE 64 MG TABLET PO SCH (10:17)
[2022-02-20] MEDS: MULTIVITAMIN (CENTRUM) TABLET PO SCH (10:17)
[2022-02-20] MEDS: BENZONATATE 100 MG CAPSULE PO SCH ×3 (10:17→21:51)
[2022-02-20] MEDS: GABAPENTIN 300 MG CAPSULE PO SCH ×4 (10:25→21:51)
[2022-02-20] MEDS: DICLOFENAC 1% GEL 100 GM TUBE TOP SCH ×4 (10:26→21:52)
[2022-02-20] MEDS: BUDESONIDE/FORMOTEROL 160-4.5 INHALER 6 GM INH SCH (13:10)
[2022-02-20] MEDS: POTASSIUM CHLORIDE 10 MEQ TABLET PO SCH (13:10)
[2022-02-20] MEDS: PANTOPRAZOLE 40 MG TABLET PO SCH (13:11)
[2022-02-20] MEDS: amLODIPine 10 MG TABLET PO SCH (13:11)
[2022-02-20] MEDS: ALBUTEROL INHALER 18 GM INH SCH (13:28)
[2022-02-20] MEDS: INSULIN GLARGINE 100 UNIT/ML SUBCUT SCH (17:48)
[2022-02-20] MEDS: RIVAROXABAN 20 MG TABLET PO SCH (17:50)
[2022-02-20] MEDS: NEBIVOLOL 10 MG TABLET PO SCH (17:50)
[2022-02-20] MEDS: ASPIRIN EC 81 MG TABLET PO SCH (21:51)
[2022-02-20] MEDS: ZALEPLON 5 MG CAPSULE PO SCH (21:51)
[2022-02-20] MEDS: POLYETHYLENE GLYCOL POWDER 17 GM PACK PO SCH (21:52)
[2022-02-20] MEDS: MONTELUKAST 10 MG TABLET PO SCH (21:52)
[2022-02-20] MEDS: cefTRIAXone 1,000 MG in SODIUM CHLORIDE 0.9% 100 ML IV SCH (22:24)
[2022-02-20] MEDS: AZITHROMYCIN INJ 500 MG in SODIUM CHLORIDE 0.9% 250 ML IV SCH (22:24)
[2022-02-21] MEDS: ALBUTEROL INHALER 18 GM INH SCH ×5 (00:19→21:41)
[2022-02-21] MEDS: PSYLLIUM POWDER 3.7 GM/PACK PO SCH ×3 (00:20→21:41)
[2022-02-21] MEDS: BUDESONIDE/FORMOTEROL 160-4.5 INHALER 6 GM INH SCH ×3 (00:20→21:42)
[2022-02-21 05:27] LABS: Basophils % 0.1 % (0.0-0.8); Hematocrit 39.6 VOL% (35.7-47.0); Immature Granulocytes % 0.8 %; Immature Granulocytes Absolute 0.13 #; Lymphocytes # 3.1 10*3/uL (1.4-4.0); Lymphocytes % 19.7 % (21.3-54.2); Mean Corpuscular HGB Conc 32.8 GM/DL (32-36); Mean Corpuscular Volume 84.8 FL (87-102); Mean Platelet Volume 10.2 FL (9.6-12.0); Monocytes # 0.9 10*3/uL (0.11-0.8); Monocytes % 5.9 % (1.7-12.7); Neutrophils % 73.5 % (38.7-73.9); Platelet Count 402 T/CUMM (130-400); Red Blood Count 4.67 MC/CUMM (3.8-5.5); Red Cell Distribution Width 14.5 % (9.3-17.3); White Blood Count 15.5 T/CUMM (4-12)
[2022-02-21 05:54] LABS: Calcium 9.4 MG/DL (8.5-10.1); Osmolality,Calculated 276.7 MOS/KG (273-304)
[2022-02-21] MEDS: LEVOTHYROXINE 175 MCG TABLET PO SCH (05:56)
[2022-02-21] MEDS: POLYETHYLENE GLYCOL POWDER 17 GM PACK PO SCH ×2 (08:34→21:41)
[2022-02-21] MEDS: NYSTATIN 500,000 UNIT/5 ML UDCUP SWISH/SWAL SCH ×4 (08:34→21:42)
[2022-02-21] MEDS: BENZONATATE 100 MG CAPSULE PO SCH ×3 (08:35→21:42)
[2022-02-21] MEDS: CYANOCOBALAMIN 500 MCG TABLET PO SCH (08:35)
[2022-02-21] MEDS: guaiFENesin/DM ER 600-30 MG TABLET PO SCH ×2 (08:35→21:41)
[2022-02-21] MEDS: MULTIVITAMIN (CENTRUM) TABLET PO SCH (08:35)
[2022-02-21] MEDS: MAGNESIUM CHLORIDE 64 MG TABLET PO SCH (08:35)
[2022-02-21] MEDS: CETIRIZINE 10 MG TABLET PO SCH (08:35)
[2022-02-21] MEDS: GABAPENTIN 300 MG CAPSULE PO SCH ×4 (08:35→21:42)
[2022-02-21] MEDS: DICLOFENAC 1% GEL 100 GM TUBE TOP SCH ×4 (08:36→21:42)
[2022-02-21] MEDS: CHOLECALCIFEROL 1,000 UNIT TABLET PO SCH (08:36)
[2022-02-21] MEDS: INSULIN LISPRO 100 UNIT/ML SUBCUT SCH ×4 (08:40→21:41)
[2022-02-21] MEDS: cefTRIAXone 1,000 MG in SODIUM CHLORIDE 0.9% 100 ML IV SCH (11:00)
[2022-02-21] MEDS: REMDESIVIR 100 MG in SODIUM CHLORIDE 0.9% 100 ML IV SCH (11:00)
[2022-02-21] MEDS: amLODIPine 10 MG TABLET PO SCH (12:10)
[2022-02-21] MEDS: PANTOPRAZOLE 40 MG TABLET PO SCH (12:10)
[2022-02-21] MEDS: POTASSIUM CHLORIDE 10 MEQ TABLET PO SCH (12:10)
[2022-02-21] MEDS: AZITHROMYCIN INJ 500 MG in SODIUM CHLORIDE 0.9% 250 ML IV SCH (13:33)
[2022-02-21] MEDS: INSULIN GLARGINE 100 UNIT/ML SUBCUT SCH (17:06)
[2022-02-21] MEDS: NEBIVOLOL 10 MG TABLET PO SCH (17:06)
[2022-02-21] MEDS: RIVAROXABAN 20 MG TABLET PO SCH (17:06)
[2022-02-21] MEDS: CEFDINIR 300 MG CAPSULE PO SCH ×2 (17:39→21:42)
[2022-02-21] MEDS: ASPIRIN EC 81 MG TABLET PO SCH (21:41)
[2022-02-21] MEDS: AZITHROMYCIN 250 MG TABLET PO SCH (21:42)
[2022-02-21] MEDS: MONTELUKAST 10 MG TABLET PO SCH (21:42)
[2022-02-21] MEDS: ZALEPLON 5 MG CAPSULE PO SCH (21:42)
[2022-02-22] MEDS: LEVOTHYROXINE 175 MCG TABLET PO SCH (06:10)
[2022-02-22] MEDS: guaiFENesin/DM ER 600-30 MG TABLET PO SCH (09:46)
[2022-02-22] MEDS: NYSTATIN 500,000 UNIT/5 ML UDCUP SWISH/SWAL SCH (09:46)
[2022-02-22] MEDS: POLYETHYLENE GLYCOL POWDER 17 GM PACK PO SCH (09:46)
[2022-02-22] MEDS: CHOLECALCIFEROL 1,000 UNIT TABLET PO SCH (09:47)
[2022-02-22] MEDS: CYANOCOBALAMIN 500 MCG TABLET PO SCH (09:47)
[2022-02-22] MEDS: MAGNESIUM CHLORIDE 64 MG TABLET PO SCH (09:47)
[2022-02-22] MEDS: MULTIVITAMIN (CENTRUM) TABLET PO SCH (09:47)
[2022-02-22] MEDS: BENZONATATE 100 MG CAPSULE PO SCH (09:47)
[2022-02-22] MEDS: GABAPENTIN 300 MG CAPSULE PO SCH (09:47)
[2022-02-22] MEDS: CEFDINIR 300 MG CAPSULE PO SCH (09:47)
[2022-02-22] MEDS: AZITHROMYCIN 250 MG TABLET PO SCH (09:47)
[2022-02-22] MEDS: PSYLLIUM POWDER 3.7 GM/PACK PO SCH (09:49)
[2022-02-22] MEDS: BUDESONIDE/FORMOTEROL 160-4.5 INHALER 6 GM INH SCH (09:50)
[2022-02-22] MEDS: DICLOFENAC 1% GEL 100 GM TUBE TOP SCH (09:51)
[2022-02-22] MEDS: CETIRIZINE 10 MG TABLET PO SCH (09:54)
[2022-02-22] MEDS: INSULIN LISPRO 100 UNIT/ML SUBCUT SCH ×2 (10:39→12:43)
[2022-02-22 12:46] VITALS: BP 172/69
[2022-02-22] MEDS: POTASSIUM CHLORIDE 10 MEQ TABLET PO SCH (13:04)
[2022-02-22] MEDS: amLODIPine 10 MG TABLET PO SCH (13:04)
[2022-02-22] MEDS: PANTOPRAZOLE 40 MG TABLET PO SCH (13:05)
== END 2022-02-22 14:30 | disposition home or self-care (01) | DRG 177 ==
LOC: EDUNIT# → EDBD → N.ED 19:15 → N.EDINP 19:15 → SUATTDRO 21:45 → N.EDINP 23:49 → N.5E 02-18 00:29
PROVIDERS: ADMIT Internal Medicine; ATTEND Hospitalist